=== PATIENT | male | born 1975 | race Caucasian/White ===

== ENCOUNTER 2022-04-15 18:14 | Inpatient (IN) | payer OTHER ==
[2022-04-15 19:21] VITALS: BMI 23.7
[2022-04-15] MEDS ORDERED: guaiFENesin 200 MG/10 ML 10 ML UNIT-DOSE CUPS PO PRN (19:41)
[2022-04-15] MEDS ORDERED: MAG HYDROX/AL HYDROX/SIMETH 30 ML UNIT-DOSE CUP PO PRN (19:41)
[2022-04-15] MEDS ORDERED: P-EPHED 60MG/TRIPROLIDI 2.5MG TABLET PO PRN (19:41)
[2022-04-15] MEDS ORDERED: NICOTINE POLACRILEX 2 MG GUM BC PRN (19:41)
[2022-04-15] MEDS ORDERED: MAGNESIUM CITRATE 300 ML BOTTLE PO PRN (19:41)
[2022-04-15] MEDS ORDERED: LOPERAMIDE HCL 2 MG CAPSULE PO PRN (19:41)
[2022-04-15] MEDS ORDERED: IBUPROFEN 400 MG TABLET (FP) PO PRN (19:41)
[2022-04-15] MEDS ORDERED: MAGNESIUM HYDROX 2400MG/30ML ORAL SUSPENSION 30 ML CUP PO PRN (19:41)
[2022-04-15] MEDS ORDERED: ACETAMINOPHEN 325 MG TABLET (FP) PO PRN (19:41)
[2022-04-15] MEDS: GABAPENTIN 400 MG CAPSULE PO SCH (21:54)
[2022-04-15] MEDS: MELATONIN 5 MG TABLETS PO SCH (21:54)
[2022-04-15] MEDS: APIXABAN 5 MG TABLET PO SCH (21:54)
[2022-04-15] MEDS: THIAMINE HCL 100 MG TABLET (FP) PO SCH (21:54)
[2022-04-15] MEDS: hydrOXYzine PAMOATE 25 MG CAPSULE (FP) PO PRN (21:56)
[2022-04-15] MEDS ORDERED: traZODone HCL 50 MG TABLET (FP) PO ONE (22:00)
[2022-04-15] MEDS ORDERED: TUBERCULIN PPD 5 TU/0.1ML VIAL ID ONE (22:58)
[2022-04-16] MEDS: GABAPENTIN 400 MG CAPSULE PO SCH ×3 (06:19→21:25)
[2022-04-16 09:00] LABS: CALCIUM 8.3 mg/dL (8.5-10.1)
[2022-04-16 09:01] LABS: ALBUMIN 2.8 g/dl (3.4-5.0); BLOOD UREA NITROGEN 12.5 mg/dL (7-18)
[2022-04-16 09:04] LABS: CREATININE 0.9 mg/dL (0.55-1.3)
[2022-04-16 09:06] LABS: BILIRUBIN,TOTAL 0.2 mg/dL (0.2-1); TOT PROT 6.2 g/dl (6.4-8.2)
[2022-04-16 09:09] LABS: HEMATOCRIT 36.1 % (35.4-49); HEMOGLOBIN 11.7 GM/dL (11.7-16.9); MCH 27.8 pg (25.7-33.7); MCHC 32.5 g/dl (32.0-35.9); MEAN CELL VOLUME 85.5 fl (80-96); MEAN PLT VOLUME 7.9 fl (7.5-11.1); PLATELET COUNT 255 10^3/uL (134-434); RBC 4.22 M/mm3 (4.00-5.60); RDW 13.4 % (11.9-15.9); WHITE BLOOD COUNT 5.4 K/mm3 (4.0-10.0)
[2022-04-16] MEDS: PANTOPRAZOLE 40 MG TABLET PO SCH (09:34)
[2022-04-16] MEDS: LORATADINE 10 MG TABLET PO PRN (09:34)
[2022-04-16] MEDS: NICOTINE 14 MG/24 HOURS TOPICAL PATCH TD SCH (09:34)
[2022-04-16] MEDS: APIXABAN 5 MG TABLET PO SCH ×2 (09:34→21:27)
[2022-04-16] MEDS: PRENATAL VITAMINS W/ FOLIC ACID TABLET (FP) PO SCH (09:34)
[2022-04-16] MEDS: FOLIC ACID 1 MG TABLET (FP) PO SCH (09:35)
[2022-04-16] MEDS ORDERED: BUPRENORPHINE/NALOXONE 8 MG/2 MG FILM PACKET SL SCH ×2 (10:00→17:19)
[2022-04-16] MEDS: MELATONIN 5 MG TABLETS PO SCH (21:25)
[2022-04-16] MEDS: THIAMINE HCL 100 MG TABLET (FP) PO SCH (21:26)
[2022-04-16] MEDS: traZODone HCL 50 MG TABLET (FP) PO SCH (21:26)
[2022-04-16] MEDS: hydrOXYzine PAMOATE 25 MG CAPSULE (FP) PO PRN (21:27)
[2022-04-16] MEDS ORDERED: BUPRENORPHINE/NALOXONE 4 MG/1 MG FILM PACKET SL ONE (23:00)
[2022-04-17] MEDS: GABAPENTIN 400 MG CAPSULE PO SCH ×3 (06:32→21:11)
[2022-04-17] MEDS: APIXABAN 5 MG TABLET PO SCH ×2 (09:28→21:11)
[2022-04-17] MEDS: FOLIC ACID 1 MG TABLET (FP) PO SCH (09:28)
[2022-04-17] MEDS: NICOTINE 14 MG/24 HOURS TOPICAL PATCH TD SCH (09:29)
[2022-04-17] MEDS: PRENATAL VITAMINS W/ FOLIC ACID TABLET (FP) PO SCH (09:29)
[2022-04-17] MEDS: PANTOPRAZOLE 40 MG TABLET PO SCH (09:29)
[2022-04-17] MEDS: BUPRENORPHINE/NALOXONE 8 MG/2 MG FILM PACKET SL SCH ×2 (09:30→20:44)
[2022-04-17] MEDS ORDERED: BACITRACIN 15 GM TUBE TOPICAL OINTMENT TP SCH (10:00)
[2022-04-17] MEDS: BACITRACIN 0.9 GM PACKET TP SCH (10:40)
[2022-04-17] MEDS: traZODone HCL 50 MG TABLET (FP) PO SCH (21:11)
[2022-04-17] MEDS: MELATONIN 5 MG TABLETS PO SCH (21:11)
[2022-04-17] MEDS: THIAMINE HCL 100 MG TABLET (FP) PO SCH (21:11)
[2022-04-18] MEDS: GABAPENTIN 400 MG CAPSULE PO SCH ×3 (06:16→21:27)
[2022-04-18] MEDS: PRENATAL VITAMINS W/ FOLIC ACID TABLET (FP) PO SCH (10:46)
[2022-04-18] MEDS: PANTOPRAZOLE 40 MG TABLET PO SCH (10:46)
[2022-04-18] MEDS: BACITRACIN 0.9 GM PACKET TP SCH (10:48)
[2022-04-18] MEDS: BUPRENORPHINE/NALOXONE 8 MG/2 MG FILM PACKET SL SCH ×2 (10:48→18:14)
[2022-04-18] MEDS: FOLIC ACID 1 MG TABLET (FP) PO SCH (11:19)
[2022-04-18] MEDS: NICOTINE 14 MG/24 HOURS TOPICAL PATCH TD SCH (11:19)
[2022-04-18] MEDS: APIXABAN 5 MG TABLET PO SCH ×2 (11:20→21:31)
[2022-04-18] MEDS ORDERED: COLLOIDAL OATMEAL 1 BAR EACH TP PRN (14:09)
[2022-04-18] MEDS: traZODone HCL 50 MG TABLET (FP) PO SCH (21:27)
[2022-04-18] MEDS: THIAMINE HCL 100 MG TABLET (FP) PO SCH (21:27)
[2022-04-18] MEDS: cloNIDine HCL 0.1 MG TABLET PO PRN (21:27)
[2022-04-18] MEDS: MELATONIN 5 MG TABLETS PO SCH (21:27)
[2022-04-18] MEDS: hydrOXYzine PAMOATE 25 MG CAPSULE (FP) PO PRN (21:27)
[2022-04-18] MEDS: MINERAL OIL/PETROLAT/WATER TOPICAL CREAM 113 GM JAR TP SCH (21:28)
[2022-04-18] MEDS: SILVER SULFADIAZINE 1% TOP CREAM 50 GM JAR TP SCH (21:29)
[2022-04-18] MEDS: MUPIROCIN CA 2% TOPICAL CREAM 15 GM TUBE TP SCH (21:30)
[2022-04-18] MEDS: NICOTINE 10 MG CARTRIDGE (INHALER) IH PRN (21:34)
[2022-04-19] MEDS: GABAPENTIN 400 MG CAPSULE PO SCH ×3 (06:20→21:48)
[2022-04-19] MEDS: BUPRENORPHINE/NALOXONE 8 MG/2 MG FILM PACKET SL SCH ×2 (06:20→18:09)
[2022-04-19] MEDS: MUPIROCIN CA 2% TOPICAL CREAM 15 GM TUBE TP SCH ×2 (09:50→21:47)
[2022-04-19] MEDS: PANTOPRAZOLE 40 MG TABLET PO SCH (09:51)
[2022-04-19] MEDS: FOLIC ACID 1 MG TABLET (FP) PO SCH (09:51)
[2022-04-19] MEDS: MINERAL OIL/PETROLAT/WATER TOPICAL CREAM 113 GM JAR TP SCH (09:52)
[2022-04-19] MEDS: APIXABAN 5 MG TABLET PO SCH ×2 (09:52→21:48)
[2022-04-19] MEDS: NICOTINE 14 MG/24 HOURS TOPICAL PATCH TD SCH (09:53)
[2022-04-19] MEDS: PRENATAL VITAMINS W/ FOLIC ACID TABLET (FP) PO SCH (09:53)
[2022-04-19] MEDS: SILVER SULFADIAZINE 1% TOP CREAM 50 GM JAR TP SCH ×2 (09:53→21:47)
[2022-04-19] MEDS: cloNIDine HCL 0.1 MG TABLET PO PRN (21:48)
[2022-04-19] MEDS: THIAMINE HCL 100 MG TABLET (FP) PO SCH (21:48)
[2022-04-19] MEDS: hydrOXYzine PAMOATE 25 MG CAPSULE (FP) PO PRN (21:48)
[2022-04-19] MEDS: traZODone HCL 50 MG TABLET (FP) PO SCH (21:48)
[2022-04-19] MEDS: MELATONIN 5 MG TABLETS PO SCH (21:48)
[2022-04-19] MEDS: SUMAtriptan SUCCINATE 50 MG TABLET PO PRN (21:48)
[2022-04-20] MEDS: BUPRENORPHINE/NALOXONE 8 MG/2 MG FILM PACKET SL SCH ×2 (06:23→17:03)
[2022-04-20] MEDS: GABAPENTIN 400 MG CAPSULE PO SCH ×3 (06:23→21:24)
[2022-04-20] MEDS: APIXABAN 5 MG TABLET PO SCH ×2 (09:56→21:24)
[2022-04-20] MEDS: LORATADINE 10 MG TABLET PO PRN (09:56)
[2022-04-20] MEDS: PANTOPRAZOLE 40 MG TABLET PO SCH (09:56)
[2022-04-20] MEDS: PRENATAL VITAMINS W/ FOLIC ACID TABLET (FP) PO SCH (09:56)
[2022-04-20] MEDS: FOLIC ACID 1 MG TABLET (FP) PO SCH (09:57)
[2022-04-20] MEDS: NICOTINE 14 MG/24 HOURS TOPICAL PATCH TD SCH (09:57)
[2022-04-20] MEDS: SILVER SULFADIAZINE 1% TOP CREAM 50 GM JAR TP SCH ×2 (09:58→21:25)
[2022-04-20] MEDS: MINERAL OIL/PETROLAT/WATER TOPICAL CREAM 113 GM JAR TP SCH (09:58)
[2022-04-20] MEDS: MUPIROCIN CA 2% TOPICAL CREAM 15 GM TUBE TP SCH ×2 (09:58→21:25)
[2022-04-20] MEDS: cloNIDine HCL 0.1 MG TABLET PO PRN (17:03)
[2022-04-20] MEDS: traZODone HCL 50 MG TABLET (FP) PO SCH (21:24)
[2022-04-20] MEDS: MELATONIN 5 MG TABLETS PO SCH (21:24)
[2022-04-20] MEDS: THIAMINE HCL 100 MG TABLET (FP) PO SCH (21:24)
[2022-04-20] MEDS: hydrOXYzine PAMOATE 25 MG CAPSULE (FP) PO PRN (21:24)
[2022-04-21] MEDS: GABAPENTIN 400 MG CAPSULE PO SCH ×3 (06:20→21:17)
[2022-04-21] MEDS: BUPRENORPHINE/NALOXONE 8 MG/2 MG FILM PACKET SL SCH ×2 (06:20→18:10)
[2022-04-21] MEDS: LORATADINE 10 MG TABLET PO PRN (09:02)
[2022-04-21] MEDS: APIXABAN 5 MG TABLET PO SCH ×2 (09:02→21:17)
[2022-04-21] MEDS: PRENATAL VITAMINS W/ FOLIC ACID TABLET (FP) PO SCH (09:02)
[2022-04-21] MEDS: PANTOPRAZOLE 40 MG TABLET PO SCH (09:02)
[2022-04-21] MEDS: FOLIC ACID 1 MG TABLET (FP) PO SCH (09:02)
[2022-04-21] MEDS: SILVER SULFADIAZINE 1% TOP CREAM 50 GM JAR TP SCH ×2 (09:03→21:17)
[2022-04-21] MEDS: MINERAL OIL/PETROLAT/WATER TOPICAL CREAM 113 GM JAR TP SCH (09:03)
[2022-04-21] MEDS: NICOTINE 14 MG/24 HOURS TOPICAL PATCH TD SCH (09:03)
[2022-04-21] MEDS: MUPIROCIN CA 2% TOPICAL CREAM 15 GM TUBE TP SCH ×2 (09:56→21:17)
[2022-04-21] MEDS: THIAMINE HCL 100 MG TABLET (FP) PO SCH (21:17)
[2022-04-21] MEDS: MELATONIN 5 MG TABLETS PO SCH (21:17)
[2022-04-21] MEDS: traZODone HCL 50 MG TABLET (FP) PO SCH (21:17)
[2022-04-21] MEDS: cloNIDine HCL 0.1 MG TABLET PO PRN (21:18)
[2022-04-22] MEDS: BUPRENORPHINE/NALOXONE 8 MG/2 MG FILM PACKET SL SCH ×2 (06:39→17:56)
[2022-04-22] MEDS: GABAPENTIN 400 MG CAPSULE PO SCH ×3 (06:40→21:07)
[2022-04-22] MEDS: MUPIROCIN CA 2% TOPICAL CREAM 15 GM TUBE TP SCH ×2 (10:00→21:07)
[2022-04-22] MEDS: APIXABAN 5 MG TABLET PO SCH ×2 (10:01→21:07)
[2022-04-22] MEDS: MINERAL OIL/PETROLAT/WATER TOPICAL CREAM 113 GM JAR TP SCH (10:01)
[2022-04-22] MEDS: FOLIC ACID 1 MG TABLET (FP) PO SCH (10:02)
[2022-04-22] MEDS: NICOTINE 14 MG/24 HOURS TOPICAL PATCH TD SCH (10:02)
[2022-04-22] MEDS: SILVER SULFADIAZINE 1% TOP CREAM 50 GM JAR TP SCH ×2 (10:03→21:07)
[2022-04-22] MEDS: PANTOPRAZOLE 40 MG TABLET PO SCH (10:03)
[2022-04-22] MEDS: PRENATAL VITAMINS W/ FOLIC ACID TABLET (FP) PO SCH (10:03)
[2022-04-22] MEDS: NICOTINE 10 MG CARTRIDGE (INHALER) IH PRN (10:18)
[2022-04-22] MEDS: traZODone HCL 50 MG TABLET (FP) PO SCH (21:07)
[2022-04-22] MEDS: MELATONIN 5 MG TABLETS PO SCH (21:08)
[2022-04-22] MEDS: cloNIDine HCL 0.1 MG TABLET PO PRN (21:13)
[2022-04-22] MEDS: THIAMINE HCL 100 MG TABLET (FP) PO SCH (21:14)
[2022-04-23] MEDS: GABAPENTIN 400 MG CAPSULE PO SCH ×3 (06:38→21:14)
[2022-04-23] MEDS: BUPRENORPHINE/NALOXONE 8 MG/2 MG FILM PACKET SL SCH ×2 (06:38→18:06)
[2022-04-23] MEDS: PANTOPRAZOLE 40 MG TABLET PO SCH (09:57)
[2022-04-23] MEDS: APIXABAN 5 MG TABLET PO SCH ×2 (09:57→21:15)
[2022-04-23] MEDS: MINERAL OIL/PETROLAT/WATER TOPICAL CREAM 113 GM JAR TP SCH (09:57)
[2022-04-23] MEDS: PRENATAL VITAMINS W/ FOLIC ACID TABLET (FP) PO SCH (09:57)
[2022-04-23] MEDS: MUPIROCIN CA 2% TOPICAL CREAM 15 GM TUBE TP SCH ×2 (09:57→21:15)
[2022-04-23] MEDS: FOLIC ACID 1 MG TABLET (FP) PO SCH (09:58)
[2022-04-23] MEDS: NICOTINE 14 MG/24 HOURS TOPICAL PATCH TD SCH (09:59)
[2022-04-23] MEDS: SILVER SULFADIAZINE 1% TOP CREAM 50 GM JAR TP SCH ×2 (09:59→21:15)
[2022-04-23] MEDS: cloNIDine HCL 0.1 MG TABLET PO PRN (21:15)
[2022-04-23] MEDS: traZODone HCL 50 MG TABLET (FP) PO SCH (21:15)
[2022-04-23] MEDS: hydrOXYzine PAMOATE 25 MG CAPSULE (FP) PO PRN (21:15)
[2022-04-23] MEDS: MELATONIN 5 MG TABLETS PO SCH (21:15)
[2022-04-23] MEDS: THIAMINE HCL 100 MG TABLET (FP) PO SCH (21:15)
[2022-04-24] MEDS: GABAPENTIN 400 MG CAPSULE PO SCH ×3 (06:19→21:29)
[2022-04-24] MEDS: BUPRENORPHINE/NALOXONE 8 MG/2 MG FILM PACKET SL SCH ×2 (06:37→18:05)
[2022-04-24] MEDS: FOLIC ACID 1 MG TABLET (FP) PO SCH (09:27)
[2022-04-24] MEDS: PRENATAL VITAMINS W/ FOLIC ACID TABLET (FP) PO SCH (09:27)
[2022-04-24] MEDS: APIXABAN 5 MG TABLET PO SCH ×2 (09:27→21:29)
[2022-04-24] MEDS: PANTOPRAZOLE 40 MG TABLET PO SCH (09:27)
[2022-04-24] MEDS: MUPIROCIN CA 2% TOPICAL CREAM 15 GM TUBE TP SCH ×2 (09:29→21:45)
[2022-04-24] MEDS: SILVER SULFADIAZINE 1% TOP CREAM 50 GM JAR TP SCH ×2 (09:29→21:45)
[2022-04-24] MEDS: MINERAL OIL/PETROLAT/WATER TOPICAL CREAM 113 GM JAR TP SCH (09:30)
[2022-04-24] MEDS: NICOTINE 14 MG/24 HOURS TOPICAL PATCH TD SCH (09:32)
[2022-04-24] MEDS: MELATONIN 5 MG TABLETS PO SCH (21:29)
[2022-04-24] MEDS: cloNIDine HCL 0.1 MG TABLET PO PRN (21:29)
[2022-04-24] MEDS: hydrOXYzine PAMOATE 25 MG CAPSULE (FP) PO PRN (21:29)
[2022-04-24] MEDS: THIAMINE HCL 100 MG TABLET (FP) PO SCH (21:29)
[2022-04-24] MEDS: traZODone HCL 50 MG TABLET (FP) PO SCH (21:29)
[2022-04-25] MEDS: GABAPENTIN 400 MG CAPSULE PO SCH ×3 (06:20→21:30)
[2022-04-25] MEDS: BUPRENORPHINE/NALOXONE 8 MG/2 MG FILM PACKET SL SCH ×2 (06:20→17:54)
[2022-04-25] MEDS: PRENATAL VITAMINS W/ FOLIC ACID TABLET (FP) PO SCH (10:19)
[2022-04-25] MEDS: APIXABAN 5 MG TABLET PO SCH ×2 (10:20→21:30)
[2022-04-25] MEDS: PANTOPRAZOLE 40 MG TABLET PO SCH (10:20)
[2022-04-25] MEDS: FOLIC ACID 1 MG TABLET (FP) PO SCH (10:20)
[2022-04-25] MEDS: MINERAL OIL/PETROLAT/WATER TOPICAL CREAM 113 GM JAR TP SCH (10:21)
[2022-04-25] MEDS: NICOTINE 14 MG/24 HOURS TOPICAL PATCH TD SCH (10:22)
[2022-04-25] MEDS: SILVER SULFADIAZINE 1% TOP CREAM 50 GM JAR TP SCH ×2 (10:22→21:31)
[2022-04-25] MEDS: MUPIROCIN CA 2% TOPICAL CREAM 15 GM TUBE TP SCH ×2 (14:51→21:31)
[2022-04-25] MEDS: SUMAtriptan SUCCINATE 50 MG TABLET PO PRN (18:35)
[2022-04-25] MEDS: MELATONIN 5 MG TABLETS PO SCH (21:30)
[2022-04-25] MEDS: traZODone HCL 50 MG TABLET (FP) PO SCH (21:30)
[2022-04-25] MEDS: cloNIDine HCL 0.1 MG TABLET PO PRN (21:30)
[2022-04-25] MEDS: hydrOXYzine PAMOATE 25 MG CAPSULE (FP) PO PRN (21:30)
[2022-04-25] MEDS: THIAMINE HCL 100 MG TABLET (FP) PO SCH (21:56)
[2022-04-26] MEDS: GABAPENTIN 400 MG CAPSULE PO SCH ×3 (06:10→21:26)
[2022-04-26] MEDS: BUPRENORPHINE/NALOXONE 8 MG/2 MG FILM PACKET SL SCH ×2 (06:10→18:14)
[2022-04-26] MEDS: MUPIROCIN CA 2% TOPICAL CREAM 15 GM TUBE TP SCH ×2 (09:43→21:26)
[2022-04-26] MEDS: APIXABAN 5 MG TABLET PO SCH ×2 (09:43→21:26)
[2022-04-26] MEDS: NICOTINE 14 MG/24 HOURS TOPICAL PATCH TD SCH (09:44)
[2022-04-26] MEDS: PRENATAL VITAMINS W/ FOLIC ACID TABLET (FP) PO SCH (09:44)
[2022-04-26] MEDS: FOLIC ACID 1 MG TABLET (FP) PO SCH (09:44)
[2022-04-26] MEDS: PANTOPRAZOLE 40 MG TABLET PO SCH (09:44)
[2022-04-26] MEDS: MINERAL OIL/PETROLAT/WATER TOPICAL CREAM 113 GM JAR TP SCH (09:45)
[2022-04-26] MEDS: SILVER SULFADIAZINE 1% TOP CREAM 50 GM JAR TP SCH ×2 (09:45→21:27)
[2022-04-26] MEDS: THIAMINE HCL 100 MG TABLET (FP) PO SCH (21:25)
[2022-04-26] MEDS: MELATONIN 5 MG TABLETS PO SCH (21:25)
[2022-04-26] MEDS: hydrOXYzine PAMOATE 25 MG CAPSULE (FP) PO PRN (21:26)
[2022-04-26] MEDS: traZODone HCL 50 MG TABLET (FP) PO SCH (21:26)
[2022-04-26] MEDS: cloNIDine HCL 0.1 MG TABLET PO PRN (21:27)
[2022-04-26 21:35] VITALS: TEMP 98.4
[2022-04-27] MEDS: GABAPENTIN 400 MG CAPSULE PO SCH (06:06)
[2022-04-27] MEDS: BUPRENORPHINE/NALOXONE 8 MG/2 MG FILM PACKET SL SCH (06:06)
[2022-04-27 06:37] VITALS: BP 120/70; PULSE 64; RESP 20
== END 2022-04-27 08:45 | disposition home or self-care (01) | DRG 772 ==
LOC: YASAS 18:14 → Y3E 20:25
PROVIDERS: ADMIT Allergy & Immunology; ATTEND Family Medicine
PROC: HZ42ZZZ Group Counseling for Substance Abuse Treatment, Cognitive-Behavioral (ICD-10-PCS; principal; 2022-04-15)
DX: F10.20 Alcohol dependence, uncomplicated (principal); F11.20 Opioid dependence, uncomplicated; F13.20 Sedative, hypnotic or anxiolytic dependence, uncomplicated; F17.210 Nicotine dependence, cigarettes, uncomplicated; F19.24 Other psychoactive substance dependence with psychoactive substance-induced mood disorder; R73.03 Prediabetes; B18.2 Chronic viral hepatitis C; I82.402 Acute embolism and thrombosis of unspecified deep veins of left lower extremity; Z86.73 Personal history of transient ischemic attack (TIA), and cerebral infarction without residual deficits; Z79.01 Long term (current) use of anticoagulants; Z86.711 Personal history of pulmonary embolism; Z56.0 Unemployment, unspecified
CPT/HCPCS: 36415; 80053; 82962; 83036; 85027; 86780; J0735